=== PATIENT | female | born 1935 | race Caucasian/White ===

== ENCOUNTER 2016-10-14 12:34 | Outpatient (CLI) | payer OTHER ==
[~2016-10-14 12:34] MED LIST: ATENOLOL50 MG PO; ENALAPRIL MALEA10 MG PO; IBUPROFEN400 MG PO; METFORMIN HCL500 MG PO; MULTIPLE VITAMIN PO; OMEGA 31000 MG PO; SIMVASTATIN20 MG PO; VICODIN EQUIVAL1 TAB PO; VITAMIN B121000 CR PO; VITAMIN D33000 UNIT PO; ZYRTEC ALLERGY10 MG PO
--- NOTE | 2016-10-14 14:37 | DIAGNOSTIC IMAGING REPORT ---
PROCEDURE: MG UNILATERAL DIAG-LT W/CAD INDICATION: MASS ON LEFT BREAST TECHNIQUE: CC and MLO views of left breast. In addition, spot compression CC and MLO views were obtained of the central aspect of the left breast. Finally, high-resolution left breast ultrasound was performed (18 mHz). COMPARISON: Mammograms 02/10/2016 FINDINGS: MAMMOGRAM: Computer-aided detection applied. Moderately dense pattern with ill-defined areas of mildly increased radiodensity in the mid central aspect of the left breast. Scattered dystrophic calcifications. BREAST ULTRASOUND: There is a 1.7 x 1.4 x 1.3 cm hypoechoic ill-defined lobulated mass without vascularity or definite posterior acoustic shadowing at the 12 o'clock position of the left breast, 5 cm from the nipple, corresponding to the mammographic finding. There is an adjacent 7 mm sharply marginated avascular hypoechoic mass which may represent a fibroadenoma. IMPRESSION: 1. 1.7 cm hypoechoic mass at the 12 o'clock position of the left breast. The patient apparently had a needle aspiration performed 2 to 3 weeks ago and this may represent a hematoma but neoplasm is a consideration. Recommend ultrasound guided biopsy 2. Results discussed with the patient and her granddaughter 3. Results called to Dr. Leo RESULT CODE: 5- Highly suggestive of malignancy - appropriate action should be taken. A. A negative report should not delay biopsy if a dominant or clinically suspicious mass is present. 10-15% of cancers are not identified by x-ray. B. A negative report may reinforce clinical impression. C. Adenosis and dense breasts may obscure an underlying neoplasm. D. False positive reports average 6-10%. E.. A yearly screening mammogram is recommended. A reminder letter will be scheduled.
--- NOTE | 2016-10-14 14:49 | DIAGNOSTIC IMAGING REPORT ---
PROCEDURE: US LTD BREAST ULTRASOUND - LT INDICATION: MASS LEFT BREAST TECHNIQUE: High resolution ultrasound of the left breast (18 MHz) COMPARISON: Mammogram 10/14/2016 and 02/10/2016. FINDINGS: There is a 1.7 x 1.4 x 1.3 cm hypoechoic ill-defined lobulated mass without vascularity or definite posterior acoustic shadowing at the 12 o'clock position of the left breast, 5 cm from the nipple, corresponding to the mammographic finding. There is an adjacent 7 mm sharply marginated avascular hypoechoic mass which may represent a fibroadenoma IMPRESSION: 1. 1.7 cm hypoechoic mass at the 12 o'clock position of the left breast. The patient apparently had a needle aspiration performed 2 to 3 weeks ago and this may represent a hematoma but neoplasm is a consideration. Recommend ultrasound guided biopsy. 2. Results discussed with the patient and her granddaughter 3. Results called to Dr. Leo Result Code: 5- Highly suggestive of malignancy.
[2016-12-15] MEDS ORDERED: SALMON OIL1000 MG PO (16:29)
== END 2016-10-14 23:00 | disposition home or self-care (01) ==
LOC: MAM SRH 12:34
DX: N63 Unspecified lump in breast (principal)

== ENCOUNTER 2016-11-24 13:23 | Outpatient (CLI) | payer OTHER ==
--- NOTE | 2016-11-24 14:21 | DIAGNOSTIC IMAGING REPORT ---
PROCEDURE: DEXA BONE DENSITY STUDY CLINICAL INDICATION: OSTEOPENIA COMPARISON: 10/02/2013 DEXA FINDINGS: LUMBAR SPINE: Bone mineral density 1.148 g/cm2, T score 0.9 normal which represents a 5.9% improvement from the previous study LEFT HIP: Bone mineral density 1.02 g/cm2, T score 0.6 normal which represents a 0.4% decrease from the previous study LEFT FEMORAL NECK: Bone mineral density 0.671 g/cm2, T score -1.6 osteopenia which represents a 3.9% improvement since the previous study FRACTURE RISK CALCULATION ( when applicable): 10-year fracture risk of a major osteoporotic fracture 12% and of a hip fracture 3.1% (T score greater or equal to -1.0 to: NORMAL) (T score from -1.1 to -2.4: OSTEOPENIA) (T score ess than or equal to -2.5: OSTEOPOROSIS) IMPRESSION: 1. Femoral neck osteopenia with a 3.9% improvement since the previous study. 2. 10-year major fracture risk at 12% and a hip fracture risk at 3.1%
--- NOTE | 2016-11-24 15:16 | DIAGNOSTIC IMAGING REPORT ---
PROCEDURE: US NEEDLE CORE BREAST BX-LEFT INDICATION: LEFT BREAST MASS TECHNIQUE: Informed consent was obtained and the patient was informed of the usual risks and complications including infection, bleeding, and allergy. Supine position. COMPARISON: Comparison is made to left mammogram and left breast ultrasound (10/14/2016). FINDINGS: Following sterile preparation and 1% lidocaine local anesthetic, ultrasound guidance was utilized to place a 13.5-gauge coaxial needle into the central left breast and directed into a 2 cm hypoechoic left breast nodule. Four core biopsy samples were obtained with a 14-gauge biopsy instrument. Samples were placed in formalin. The patient tolerated the procedure reasonably well and was discharged home in satisfactory condition with instructions to call me for any untoward symptoms. IMPRESSION: 1. Successful ultrasound-guided biopsy of left breast mass.
[2016-12-15] MEDS ORDERED: SALMON OIL1000 MG PO (16:29)
== END 2016-11-24 23:00 ==
LOC: XR SRH 13:23
PROC: 0HBU3ZX Excision of Left Breast, Percutaneous Approach, Diagnostic (ICD-10-PCS; principal; 2016-11-24)
DX: N63 Unspecified lump in breast (principal); M85.80 Other specified disorders of bone density and structure, unspecified site

== ENCOUNTER 2016-12-16 11:26 | Observation (INO) | payer OTHER ==
[~2016-12-16] VITALS: Ht 154.9 cm; Wt 87.8 kg
[2016-12-16] VITALS (8 sets, daily range): BP systolic 108–135; BP diastolic 48–61
[~2016-12-16 11:26] MED LIST changes: +SALMON OIL1000 MG PO
--- NOTE | 2016-12-16 17:16 | DIAGNOSTIC IMAGING REPORT ---
PROCEDURE: NM LYMPH SYSTEM IMAGING INDICATION: LT BREAST CA TECHNIQUE: Four periareolar injection sites were injected with 1% lidocaine for local anesthesia and 1 mCi of technetium 99m sulfur colloid divided in 4 equal aliquots were then injected subcutaneously around the areola COMPARISON: Left mammogram and breast ultrasound 10/14/2016 FINDINGS: Anterior, 45 degrees [place] and left lateral views were obtained at 1.5 hours. Periareolar activity is noted but there is no activity in the left axilla. IMPRESSION: 1. No abnormal uptake of the left axilla.
--- NOTE | 2016-12-16 17:16 | DIAGNOSTIC IMAGING REPORT ---
PROCEDURE: NM LYMPH SYSTEM IMAGING INDICATION: LT BREAST CA TECHNIQUE: Four periareolar injection sites were injected with 1% lidocaine for local anesthesia and 1 mCi of technetium 99m sulfur colloid divided in 4 equal aliquots were then injected subcutaneously around the areola COMPARISON: Left mammogram and breast ultrasound 10/14/2016 FINDINGS: Anterior, 45 degrees TRISTANIAN and left lateral views were obtained at 1.5 hours. Periareolar activity is noted but there is no activity in the left axilla. IMPRESSION: 1. No abnormal uptake of the left axilla.
--- NOTE | 2016-12-16 20:31 | OPERATIVE REPORT ---
DATE OF SURGERY: 12/16/2016 SURGEON: Forest Guerra MD PREOPERATIVE DIAGNOSIS: 1. Breast carcinoma POSTOPERATIVE DIAGNOSIS: 1. Breast carcinoma PROCEDURE PERFORMED: 1. Bilateral total mastectomy with left sentinel node biopsies ANESTHESIA: General. COMPLICATIONS: No intraoperative complications were encountered. 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 She elected to have bilateral mastectomies by her own choice. SURGICAL TECHNIQUE: The patient was taken to the operating room, where a general anesthetic was administered and patient prepped and draped in the usual sterile fashion. She had received radionucleotide in the radiology department. Immediately upon induction methylene blue was injected in the subareolar space. Note, the patient did have a curved periareolar biopsy scar, but the injection was kept just inferior to it to allow passage through intact lymphatic ducts. This sterile prep and drape was then carried out. A mastectomy yue was made on the breast and the axilla carefully examined with the probe. This demonstrated an area of increased activity all by itself, fairly low in the axilla. This was separate from the mastectomy site; therefore, a separate incision was made over this area. Marcaine 0.25% with epinephrine was used at all incision sites. The incision was carried down into the axillary node-bearing area where there was a single area that showed increased activity. This was pulled up with a Uri forceps and excised and submitted for histopathology. This contained a lymph node, which was negative for carcinoma. Careful scanning in the axilla revealed no further areas of activity and no palpable lymph nodes. Meticulous hemostasis was obtained at the biopsy site with pinpoint electrocautery and the wound was then packed. The mastectomy was carried out on the left side, making a transverse skin sparing flap. The flap was developed superiorly initially and then inferiorly. The breast was rolled off the chest wall, taking with it pectoralis fascia. Hemostasis was obtained with a combination of electrocautery and metallic clips. Laterally, the incision was carried up sufficiently to remove the axillary tail of Ingram, but no attempt was made to do an axillary dissection for the lymph nodes. A single suture was placed in the axillary tissue to orient the specimen for pathologist and was handed off the field. Meticulous pinpoint hemostasis obtained. Additional Marcaine was instilled in the wound and the wound was then subsequently irrigated to rid it of any remaining nonvascularized fat. A flat 10 mm silicone drain was placed underneath the lower flap and brought out through a separate lateral stab wound, where it was secured to the skin with a 3-0 nylon suture and placed to bulb suction. The wound was closed with interrupted deep dermal 3-0 Vicryl and running subcuticular 4-0 Vicryl suture. The biopsy site was closed in the same way. The right breast was then treated in similar fashion. No lymph node biopsy was taken, of course. Flaps were developed in both directions and the breast was excised with the axillary tail of Juan Jose and oriented with a suture. The wound was closed using the same suture routine. Steri-Strips and dressings placed at both sites and the patient left in stable condition.
[2016-12-17] VITALS (7 sets, daily range): BP systolic 90–117; BP diastolic 40–59
--- NOTE | 2016-12-17 08:43 | Progress Note ---
Subjective General 1 day s/p bilat mastectomy and left sentinal node biopsy Physical Exam Vital Signs / I&Os Vital Signs Date Time Temp Pulse Resp B/P Pulse O2 O2 Flow FiO2 Ox Delivery Rate 12/17 0817 68 12/17 0633 98.1 68 19 112/49 95 Nasal 2.0 Cannula 12/17 0506 75 12 99 2.0 12/17 0247 65 10 99 2.0 12/17 0218 98.4 65 15 110/59 95 Nasal 2.0 Cannula 12/17 0126 63 16 96 2.0 12/16 2331 70 16 96 2.0 12/16 2217 98.2 72 18 108/60 97 Nasal 2.0 Cannula 12/16 2124 71 10 96 12/16 2115 68 20 113/48 95 Nasal 2.0 Cannula 12/16 2099 Nasal 3.0 Cannula 12/16 2044 98.1 70 16 122/54 96 Nasal 2.0 Cannula 12/16 2009 97.3 78 16 124/61 96 Nasal 2.0 Cannula 12/16 1954 97.2 77 16 128/53 96 Nasal 2.0 Cannula 12/16 1942 73 17 96 2.0 12/16 194 97.9 78 16 128/51 95 Nasal 3.0 Cannula 12/16 1925 76 16 135/55 95 Nasal 3.0 Cannula 12/16 192 97.9 80 16 135/55 95 Nasal 3.0 Cannula 12/16 1855 97.5 72 16 131/57 94 12/16 1850 73 19 135/60 94 12/16 1845 74 19 130/55 95 12/16 1840 75 19 136/57 95 12/16 1835 74 20 128/58 95 12/16 1830 75 17 130/53 95 12/16 1825 73 19 130/52 93 12/16 1820 76 15 138/63 94 12/16 1815 80 17 137/50 92 12/16 1810 81 19 135/55 93 12/16 1805 83 19 141/61 91 12/16 1800 74 18 146/61 91 12/16 1755 92 18 128/99 92 12/16 1750 86 15 142/77 93 12/16 1745 97.2 89 19 144/67 94 Nasal 3.0 Cannula 12/16 1115 98.6 69 17 136/64 98 I&O 12/16 0800 12/16 1600 12/17 0000 Intake Total 450 0 Output Total 140 Balance 450 -140 General Appearance Alert, Oriented X3, Cooperative Lungs Clear to auscultation Breasts dressings intact, sero sanguinous RODNEY drainage Assessment and Plan Problem List 1. S/P bilateral mastectomy Plan Pt. does not feel ready to go home and is still pretty sore. Will watch her in house for now.
[2016-12-18 01:02] VITALS: BP 137/65
[2016-12-18 07:11] VITALS: BP 124/84
[2016-12-18 11:19] VITALS: BP 102/51
--- NOTE | 2016-12-18 11:41 | Progress Note ---
Subjective General Post Op Day 2 s/p bilateral mastectomy and left sentinal node biopsy Pt. was on percocet for pain by request but has become tremulous and she and her family requested a switch to vicodin. She reported pain under the left axilla. Physical Exam Vital Signs / I&Os Vital Signs Date Time Temp Pulse Resp B/P Pulse O2 O2 Flow FiO2 Ox Delivery Rate 12/18 1119 98.4 72 17 102/51 100 Room Air 12/18 0949 80 12/18 0850 Room Air 0.0 12/18 0711 98.1 53 19 124/84 95 Nasal 2.0 Cannula 12/18 0513 65 14 96 2.0 12/18 0300 70 16 98 2.0 12/18 0200 Nasal 2.0 Cannula 12/18 0146 70 16 99 2.0 12/18 0102 98.1 66 13 137/65 98 Nasal 2.0 Cannula 12/17 2315 68 13 98 2.0 12/17 2249 97.9 66 16 90/40 97 Nasal 2.0 Cannula 12/17 2059 70 14 100 2.0 12/17 1955 2.0 12/17 1809 97.5 71 14 102/42 100 Nasal 2.0 Cannula 12/17 1700 Nasal 2.0 Cannula 12/17 1358 98.1 63 12 109/52 96 Nasal 2.0 Cannula 12/17 1212 62 16 97 12/17 1201 97.9 63 19 117/54 96 Nasal 2.0 Cannula I&O 12/17 0800 12/17 1600 12/18 0000 Intake Total 263 480 360 Output Total 240 852 1936 Balance -237 -480 -965 General Appearance Alert, Cooperative, Pt. seems tired and reports she is tired and without much appetite. She has been requiring help with getting up. HEENT Atraumatic, PERRLA Breasts The left sided dressing was taken down and the skin was wrinkled under the alexis wrap with pressure induced discoloration. When released the skin looked pink. Some steri strips required replacement and a new dressing was place without the alexis wrap. Assessment and Plan Problem List 1. S/P bilateral mastectomy Plan Pt. is still having difficulties with pain control and I think she needs to stay another day for wound and pain management. Hopefully by tommorow things will equilibrate enough to allow out pt. management. She will need some help at home.
[2016-12-18 14:39] VITALS: BP 105/44
[2016-12-18 17:59] VITALS: BP 103/52
[2016-12-18 22:15] VITALS: BP 121/67
[2016-12-19 02:30] VITALS: BP 127/60
[2016-12-19 06:56] VITALS: BP 138/76
--- NOTE | 2016-12-19 10:15 | Progress Note ---
Subjective General Pt. feels fine. Physical Exam Vital Signs / I&Os Vital Signs Date Time Temp Pulse Resp B/P Pulse O2 O2 Flow FiO2 Ox Delivery Rate 12/19 0933 78 12/19 0809 Room Air 0.0 12/19 0656 97.7 65 18 138/76 96 Room Air 12/19 0230 98.1 55 16 127/60 91 Room Air 12/18 2215 98.2 59 16 121/67 95 Room Air 12/18 2100 Room Air 12/18 1759 97.9 72 16 103/52 97 Room Air 0.0 12/18 1439 97.7 66 16 105/44 94 Room Air 0.0 12/18 1119 98.4 72 17 102/51 100 Room Air I&O 12/18 0800 12/18 1600 12/19 0000 Intake Total 550 480 500 Output Total 980 775 Balance -430 480 -275 General Appearance Alert, Oriented X3, Cooperative Breasts dressings intact, RODNEY's serous Assessment and Plan Problem List 1. S/P bilateral mastectomy Plan home today-pt. feels ok at home with home health visit and support from her family. She is instructed to limit arm use and drains need daily emptying.
[2016-12-19] MEDS ORDERED: NORCO1 TA1 PO (10:31)
--- NOTE | 2016-12-19 10:32 | Provider's Discharge Care Plan ---
Problem, Goal, Plan Problem List 1. S/P bilateral mastectomy
--- NOTE | 2016-12-19 10:32 | Provider's Discharge Care Plan ---
Problem, Goal, Plan Problem List 1. S/P bilateral mastectomy
[2016-12-19 10:38] VITALS: BP 126/65
== END 2016-12-19 14:22 | disposition home health service (06) ==
LOC: SCU SRH 11:26 → SDC SRH 11:26 → EDSTATUS 12:00 → SDC SRH 12:00 → NM SRH 12:00 → ACUTE2 SRH 19:20 → SDC SRH 12-17 14:05 → ACUTE2 SRH 12-17 14:05
PROVIDERS: ADMIT Surgery
PROC: 07B60ZX Excision of Left Axillary Lymphatic, Open Approach, Diagnostic (ICD-10-PCS; principal; 2016-12-16 14:15)
PROC: 0HTU0ZZ Resection of Left Breast, Open Approach (ICD-10-PCS; principal; 2016-12-16 14:15)
PROC: 0HTT0ZZ Resection of Right Breast, Open Approach (ICD-10-PCS; principal; 2016-12-16 14:15)
DX: C50.112 Malignant neoplasm of central portion of left female breast (principal); Z40.01 Encounter for prophylactic removal of breast; D05.11 Intraductal carcinoma in situ of right breast; Z17.0 Estrogen receptor positive status [ER+]; Z19.1 Hormone sensitive malignancy status